=== PATIENT | female | born 1935 | race Caucasian/White ===

== ENCOUNTER → 2016-12-26 | Outpatient (CLI) | payer MEDICARE, OTHER ==
[~2016-12-26] MED LIST: ANECREAM530 GM TP; ASPIRIN CHEWABL81 MG PO; BREO ELLIPTA 11 EACH INH; CATAPRES-TTS 31 EACH TD; DURAGESIC 50 MCG1 EA TD; HYDRALAZINE HC100 MG PO; HYDRALAZINE HCL50 MG PO; ISOSORBIDE MONO60 MG PO; LASIX 40 MG TAB40 MG PO; LOPRESSOR 25 MG25 MG PO; NEURONTIN 300300 MG PO; NORVASC 5 MG TAB5 MG PO; OMEPRAZOLE20 M1 PO; OMEPRAZOLE20 MG PO; PLAVIX 75 MG TA75 MG PO; PRAVACHOL20 MG PO; SINGULAIR10 MG PO; ZOFRAN ODT4 MG PO; ZYLOPRIM 100 M100 MG PO
[2016-12-26 13:25] LABS: HEMOGLOBIN 11.6 gm/dl (12.3-15.3); RED BLOOD COUNT 3.9 M/UL (4.00-5.10); WHITE BLOOD COUNT 8.1 K/UL (4.5-11.0)
== END ==
LOC: LAB 12:18
PROVIDERS: Nurse Practitioner Family
DX: I25.10 Atherosclerotic heart disease of native coronary artery without angina pectoris (principal); R60.9 Edema, unspecified
CPT/HCPCS: 36415; 80053; 85025

== ENCOUNTER → 2017-02-04 | Day surgery (SDC) | payer MEDICARE, OTHER | END | disposition home or self-care (01) | LOC: OR 06:56 | PROVIDERS: Internal Medicine Gastroenterology | PROC: 0DB68ZX Excision of Stomach, Via Natural or Artificial Opening Endoscopic, Diagnostic (ICD-10-PCS; principal; 2017-02-04 17:00) | DX: K29.50 Unspecified chronic gastritis without bleeding (principal); K25.7 Chronic gastric ulcer without hemorrhage or perforation; K21.0 Gastro-esophageal reflux disease with esophagitis; K44.9 Diaphragmatic hernia without obstruction or gangrene; I10 Essential (primary) hypertension; J45.909 Unspecified asthma, uncomplicated; M19.90 Unspecified osteoarthritis, unspecified site; Z88.5 Allergy status to narcotic agent; Z79.82 Long term (current) use of aspirin; Z79.02 Long term (current) use of antithrombotics/antiplatelets; Z79.899 Other long term (current) drug therapy; Z90.49 Acquired absence of other specified parts of digestive tract; Z90.710 Acquired absence of both cervix and uterus | CPT/HCPCS: 80076; 82150; 82962; 83690; J2250; J7030 ==

== ENCOUNTER 2017-02-05 15:00 | Observation (INO) | payer MEDICARE, OTHER ==
[~2017-02-05] VITALS: Ht 160 cm; Wt 92.6 kg
[~2017-02-05 15:00] MED LIST changes: -CATAPRES-TTS 31 EACH TD; -HYDRALAZINE HC100 MG PO; -ISOSORBIDE MONO60 MG PO; -LOPRESSOR 25 MG25 MG PO; -NEURONTIN 300300 MG PO; -OMEPRAZOLE20 MG PO; -PRAVACHOL20 MG PO; -SINGULAIR10 MG PO; -ZOFRAN ODT4 MG PO; -ZYLOPRIM 100 M100 MG PO
[2017-02-05 16:14] LABS: HEMOGLOBIN 11.2 gm/dl (12.3-15.3); RED BLOOD COUNT 3.87 M/UL (4.00-5.10); WHITE BLOOD COUNT 9.6 K/UL (4.5-11.0)
[2017-02-06 05:24] LABS: HEMOGLOBIN 9.9 gm/dl (12.3-15.3); WHITE BLOOD COUNT 8.3 K/UL (4.5-11.0)
[2017-02-06 05:25] LABS: RED BLOOD COUNT 3.41 M/UL (4.00-5.10)
[2017-02-07] MEDS ORDERED: ZYLOPRIM 100 M100 MG PO (13:23)
[2017-02-07] MEDS ORDERED: BREO ELLIPTA 11 EACH INH (13:24)
[2017-02-07] MEDS ORDERED: CATAPRES-TTS 31 EACH TD (13:29)
[2017-02-07] MEDS ORDERED: DURAGESIC 50 MCG1 EA TD (13:30)
[2017-02-07] MEDS ORDERED: LASIX 40 MG TAB40 MG PO (13:31)
[2017-02-07] MEDS ORDERED: NEURONTIN 300300 MG PO (13:31)
[2017-02-07] MEDS ORDERED: HYDRALAZINE HC100 MG PO (13:32)
[2017-02-07] MEDS ORDERED: SINGULAIR10 MG PO (13:34)
[2017-02-07] MEDS ORDERED: ISOSORBIDE MONO60 MG PO (13:34)
[2017-02-07] MEDS ORDERED: OMEPRAZOLE20 MG PO (13:34)
[2017-02-07] MEDS ORDERED: ZOFRAN ODT4 MG PO (13:35)
[2017-02-07] MEDS ORDERED: PRAVACHOL20 MG PO (14:35)
[2017-02-07] MEDS ORDERED: LOPRESSOR 25 MG25 MG PO (14:36)
[2017-02-07] MEDS ORDERED: ASPIRIN CHEWABL81 MG PO (14:36)
== END 2017-02-07 15:30 | disposition home or self-care (01) ==
LOC: ER1 15:00 → ZEROF 19:56 → M/S 19:56
PROVIDERS: Emergency Medicine; ADMIT Family Medicine
DX: R07.89 Other chest pain (principal); I35.0 Nonrheumatic aortic (valve) stenosis; D64.9 Anemia, unspecified; I25.10 Atherosclerotic heart disease of native coronary artery without angina pectoris; K25.9 Gastric ulcer, unspecified as acute or chronic, without hemorrhage or perforation; E78.5 Hyperlipidemia, unspecified; I11.0 Hypertensive heart disease with heart failure; I50.32 Chronic diastolic (congestive) heart failure; J44.9 Chronic obstructive pulmonary disease, unspecified; E11.9 Type 2 diabetes mellitus without complications; I73.9 Peripheral vascular disease, unspecified; M19.90 Unspecified osteoarthritis, unspecified site; Z95.1 Presence of aortocoronary bypass graft; Z79.82 Long term (current) use of aspirin; Z79.899 Other long term (current) drug therapy; Z86.73 Personal history of transient ischemic attack (TIA), and cerebral infarction without residual deficits; Z90.49 Acquired absence of other specified parts of digestive tract; Z90.710 Acquired absence of both cervix and uterus; Z98.49 Cataract extraction status, unspecified eye; Z96.642 Presence of left artificial hip joint; Z87.891 Personal history of nicotine dependence; Z95.5 Presence of coronary angioplasty implant and graft
CPT/HCPCS: ECHO; 36415; 71010; 80048; 80053; 80061; 82150; 82550; 82553; 82962; 83036; 83605; 83690; 83735; 83874; 83880; 84439; 84484; 85025; 85379; 85610; 87040; 93005; 93306; 94664; 96365; 96374; 96375; 96376; 99285; C9113; G0378; J1956; J2270; J2405; Q0162

== ENCOUNTER 2020-12-11 13:12 | Inpatient (IN) | payer MEDICARE, OTHER ==
[~2020-12-11] VITALS: Ht 162.6 cm; Wt 86.2 kg
[~2020-12-11 13:12] MED LIST changes: +ALBUTEROL1.25 MG/3 INH; +AMLODIPINE BESYL5 MG PO; +CARAFATE1 GM PO; +CARDIZEM CD240 MG PO; +CARVEDILOL12.5 MG PO; +CATAPRES 0.1MG0.1 MG PO; +CATAPRES-TTS 31 EACH TD; +CILOSTAZOL50 MG PO; +COREG6.25 MG PO; +COZAAR100 MG PO; +CYANOCOBAL1000 MCG/1 INJ; +FERROUS SULFAT325 M2 PO; +FISH OIL 1,0001 EACH PO; +GABAPENTIN300 MG PO; +HYDRALAZINE HC100 MG PO; +ISOSORBIDE MONO60 MG PO; +LABETALOL HCL300 MG PO; +LINZESS145 MCG PO; +LISINOPRIL10 MG PO; +LOPRESSOR 25 MG25 MG PO; +LOPRESSOR50 MG PO; +MECLIZINE HCL25 MG PO; +MICROZIDE12.5 MG PO; +NEURONTIN 100100 MG PO; +NEURONTIN 300300 MG PO; +NORVASC10 MG PO; +OMEPRAZOLE20 MG PO; +OMEPRAZOLE40 MG PO; +PRAVACHOL20 MG PO; +PRINIVIL10 MG PO; +PRINIVIL20 MG PO; +RANEXA500 MG PO; +RANITIDINE HCL300 M1 PO; +REGLAN10 MG PO; +SINGULAIR10 MG PO; +THERAGRAN M TAB1 EA PO; +VENTOLIN HFA 66.7 GM INH; +VITAMIN B-121000 MC3 INJ; +VITAMIN B-121000 MCG PO; +VITAMIN C500 M1 PO; +ZOFRAN ODT4 MG PO; +ZYLOPRIM 100 M100 MG PO
[2020-12-11 15:21] LABS: BUN/CREATININE RATIO 21 (0-10)
[2020-12-11 16:03] LABS: WHITE BLOOD COUNT 10.5 K/UL (4.5-11.0)
[2020-12-11 16:04] LABS: HEMOGLOBIN 10.6 gm/dl (12.3-15.3); RED BLOOD COUNT 3.91 M/UL (4.00-5.10)
[2020-12-12] MEDS ORDERED: CELEBREX200 MG PO (19:51)
[2020-12-13 05:01] LABS: HEMOGLOBIN 9.8 gm/dl (12.3-15.3); RED BLOOD COUNT 3.61 M/UL (4.00-5.10); WHITE BLOOD COUNT 8.8 K/UL (4.5-11.0)
[2020-12-16 07:10] LABS: CORTISOL 7.4 ug/dL (.)
[2020-12-18 05:14] LABS: HEMOGLOBIN 8.5 gm/dl (12.3-15.3); RED BLOOD COUNT 3.16 M/UL (4.00-5.10); WHITE BLOOD COUNT 8.7 K/UL (4.5-11.0)
--- NOTE | 2020-12-18 21:10 | NUR ---
RECEIVED CALL FROM DR ENCISO REGARDING CONSULT. UPDATE GIVEN AND CONSULT WAS PUT IN . IT WAS ORIGINALLY PUT IN BY DR ARMSTRONG UNDER NURSING
[2020-12-20 04:16] LABS: HEMOGLOBIN 8.3 gm/dl (12.3-15.3); RED BLOOD COUNT 3.08 M/UL (4.00-5.10); WHITE BLOOD COUNT 7.7 K/UL (4.5-11.0)
[2020-12-20] MEDS ORDERED: HYGROTON TAB 2525 MG PO (14:09)
[2020-12-20] MEDS ORDERED: CATAPRES 0.1MG0.1 MG PO (14:09)
[2020-12-20] MEDS ORDERED: CLOPIDOGREL75 MG PO (14:09)
[2020-12-20] MEDS ORDERED: HYDRALAZINE HCL50 MG PO (14:09)
[2020-12-20] MEDS ORDERED: ASPIRIN EC81 MG PO (14:09)
[2020-12-20] MEDS ORDERED: NICARDIPINE HCL30 MG PO (14:09)
[2020-12-25 18:11] LABS: METANEPHRINE, PL 11.7 pg/mL (0.0-88.0); NORMETANEPHRINE, PL 43.6 pg/mL (0.0-191.8)
[2020-12-26 04:11] LABS: CREATININE, URINE 60 mg/dL (.); METANEPHRINE/CREATININE RATIO 67 ug/g (.); NORMETANEPHRINE/CREAT. RATIO 217 ug/g (.)
[2020-12-29 00:09] LABS: DOPAMINE, URINE 74 ug/L (Undefined)
== END 2020-12-20 15:18 | disposition home or self-care (01) | DRG 304 ==
LOC: ER1 13:12 → CDU 16:21 → CCU 16:21
PROVIDERS: Emergency Medicine; Internal Medicine; Internal Medicine Nephrology; ADMIT Internal Medicine Infectious Disease
PROC: 02HV33Z Insertion of Infusion Device into Superior Vena Cava, Percutaneous Approach (ICD-10-PCS; principal; 2020-12-19)
DX: I16.1 Hypertensive emergency (principal); I50.33 Acute on chronic diastolic (congestive) heart failure; J81.1 Chronic pulmonary edema; I67.4 Hypertensive encephalopathy; N17.9 Acute kidney failure, unspecified; I16.9 Hypertensive crisis, unspecified; G45.9 Transient cerebral ischemic attack, unspecified; R51.9 Headache, unspecified; Z20.822 Contact with and (suspected) exposure to COVID-19; I70.1 Atherosclerosis of renal artery; I25.10 Atherosclerotic heart disease of native coronary artery without angina pectoris; J44.9 Chronic obstructive pulmonary disease, unspecified; I13.0 Hypertensive heart and chronic kidney disease with heart failure and stage 1 through stage 4 chronic kidney disease, or unspecified chronic kidney disease; N18.30 Chronic kidney disease, stage 3 unspecified; E78.5 Hyperlipidemia, unspecified; E11.22 Type 2 diabetes mellitus with diabetic chronic kidney disease; I16.0 Hypertensive urgency; I73.9 Peripheral vascular disease, unspecified; Z96.642 Presence of left artificial hip joint; Z90.710 Acquired absence of both cervix and uterus; Z95.1 Presence of aortocoronary bypass graft; Z90.49 Acquired absence of other specified parts of digestive tract; Z98.49 Cataract extraction status, unspecified eye; Z87.891 Personal history of nicotine dependence; Z88.6 Allergy status to analgesic agent; Z88.8 Allergy status to other drugs, medicaments and biological substances
CPT/HCPCS: 36415; 70450; 70496; 70498; 70551; 71045; 80048; 80053; 81001; 82088; 82384; 82533; 82550; 82553; 82570; 83690; 83735; 83835; 83874; 83880; 84100; 84156; 84244; 84439; 84443; 84484; 85007; 85025; 85027; 85610; 85730; 87086; 92610; 93005; 94760; 97110; 97116; 97116-GP-CQ; 97161; 97166; 97530; 97535; 99285; J0360; J1940; J2405; J7030; Q9965; U0002